=== PATIENT | female | born 1980 | race Caucasian/White ===

== ENCOUNTER → 2017-04-29 | Outpatient (CLI) | payer OTHER | END | disposition home or self-care (01) | LOC: C.RDSM 13:41 | PROVIDERS: ATTEND Family Medicine Sports Medicine | DX: M54.5 Low back pain (principal) ==

== ENCOUNTER → 2017-11-10 | Outpatient (CLI) | payer OTHER ==
--- NOTE | 2017-11-10 10:33 | DIAGNOSTIC IMAGING REPORT ---
HYSTEROSALPINGOGRAM HISTORY: Infertility. FLUOROSCOPY TIME: 30 seconds. TECHNIQUE: The cervix was cannulated by the van owner operator-art glass designer and water soluble contrast was instilled into the uterus under fluoroscopic guidance. Multiple spot images were obtained. FINDINGS: The uterine cavity is normal in size, shape, and position. The fallopian tubes are patent and there is free peritoneal spill bilaterally. There was spasm at the distal aspect of the right uterine tube which was relieved at the latter aspects of the study. Both uterine tubes demonstrate patency and free spill of contrast IMPRESSION: Normal hysterosalpingogram. The above report was generated using voice recognition software. It may contain grammatical, syntax or spelling errors. Electronically signed by: Paul Golden M.D. 11/10/2017 10:32 AM Dictated Date/Time: 11/10/2017 10:31 AM
--- NOTE | 2017-11-10 18:57 | Progress Note ---
Progress Note Date of Service Nov 10, 2017. Progress Note I met the patient in radiology and verbally confirmed consent for procedure. She was positioned and a graves speculum was placed, cervix prepped with betadine, anterior lip grasped with tenaculum, and osborn's cannula placed against external os. Under fluoroscopy, contrast was pushed through the uterus and tubes. Left tube filled first, Right tube did not fill until patient cried out with a sharp pain after which contrast was promptly seen through and spilling from the tube. See radiology report for full results interpretation. All instruments were removed and patient was in stable condition in the radiology suite when I departed.
== END | disposition home or self-care (01) ==
LOC: C.RAD 09:36
PROVIDERS: ATTEND Obstetrics & Gynecology
DX: Z31.41 Encounter for fertility testing (principal)